=== PATIENT | male | born 1945 | race Caucasian/White ===

== ENCOUNTER 2017-03-19 14:08 | Emergency (ER) | payer MEDICARE ==
[~2017-03-19] VITALS: Ht 172.7 cm; Wt 78.0 kg
[~2017-03-19 14:08] MED LIST: CIPR500T4 PO; METR-1 PO; TEMA15 PO
[2017-03-19 14:10] VITALS: BP 142/75; PULSE 90; RESP 24; TEMP 98; O2SAT 99
[2017-03-19] MEDS ORDERED: TEMA30CA PO (15:09)
[2017-03-19] MEDS ORDERED: MORPHINE SULFATE 4 MG/ML INJ IM ONE (15:15)
[2017-03-19] MEDS ORDERED: ONDANSETRON HCL 4 MG/2 ML VIAL IM ONE (15:15)
[2017-03-19] MEDS ORDERED: KETOROLAC TROMETHAMINE 60 MG/2 ML (IM) VIAL IM ONE (15:15)
--- NOTE | 2017-03-19 15:27 | PD ---
HPI Chief Complaint: Back/ Neck Pain or Injury Time Seen by Provider: 14:54 Travel History International Travel<30 days: No Contact w/Intl Traveler<30days: No Traveled to known affect area: No History of Present Illness HPI This patient complains of back pain. He has bilateral low back pain. Severity is severe at this time. Duration one day. The patient was twisting his torso to grab something when the pain started. There was no direct trauma to it. No sciatic radiation. No urinary complaints. Symptoms exacerbated by movement. Symptoms alleviated by rest. No prior back surgery. Denies paresthesia or muscle weakness or sensory loss of the legs PFSH Past Medical History Asthma: No Blood Disorders: No Anxiety: No Depression: No Heart Rhythm Problems: No Cancer: Yes (SKIN ) Cardiovascular Problems: No High Cholesterol: No Chemotherapy: No Chest Pain: No Congestive Heart Failure: No COPD: No Diabetes: No Diminished Hearing: No Endocrine: No Gastrointestinal Disorders: Yes (GASTRITIS ) Genitourinary: No Hiatal Hernia: Yes Immune Disorder: No Kidney Stones: Yes Musculoskeletal: No Neurologic: No Psychiatric: No Reproductive: No Respiratory: No Radiation Therapy: No Sleep Apnea: No Thyroid Disease: No Past Surgical History Other Surgery: Yes (HEMMORHOID, basal cell carcinoma) Social History Alcohol Use: No Tobacco Use: No (QUIT 40 YRS AGO) Substance Use: No Allergies-Medications (Allergen,Severity, Reaction): Coded Allergies: penicillin G (Unverified Allergy, Severe, rash, 03/19/17) Reported Meds & Prescriptions Reported Meds & Active Scripts Active Tramadol (Tramadol HCl) 50 Mg Tab 50 Mg PO Q6H PRN Orphenadrine CR (Orphenadrine Citrate) 100 Mg Tab 100 Mg PO Q12HR Reported Temazepam 30 Mg Cap 30 Mg PO HS PRN Review of Systems General / Constitutional: No: Fever Eyes: No: Visual changes HENT: No: Headaches Cardiovascular: No: Chest Pain or Discomfort Respiratory: No: Shortness of Breath Gastrointestinal: No: Abdominal Pain Genitourinary: No: Dysuria Musculoskeletal: Positive: Pain Skin: No Rash Neurologic: No: Weakness Psychiatric: No: Depression Endocrine: No: Polydipsia Hematologic/Lymphatic: No: Easy Bruising Physical Exam Narrative GENERAL: Well-nourished, well-developed patient with back pain . SKIN: Focused skin assessment reveals no rash and nodules. Skin is Warm and dry. HEAD: Atraumatic. Normocephalic. EYES: Pupils equal and round. No scleral icterus. No injection or drainage. ENT: No nasal bleeding or discharge. Mucous membranes pink and moist. NECK: Trachea midline. No JVD. CARDIOVASCULAR: Regular rate and rhythm. No murmur appreciated. RESPIRATORY: No accessory muscle use. Clear to auscultation. Breath sounds equal bilaterally. GASTROINTESTINAL: Abdomen soft, non-tender, nondistended. Hepatic and splenic margins not palpable. MUSCULOSKELETAL: No obvious deformities. No clubbing. No cyanosis. No edema. Has bilateral low back tenderness diffusely. NEUROLOGICAL: Awake and alert. No obvious cranial nerve deficits. Motor grossly within normal limits. Normal speech. PSYCHIATRIC: Appropriate mood and affect; insight and judgment normal. Data Data Last Documented VS Vital Signs Date Time Temp Pulse Resp B/P (MAP) Pulse Ox O2 Delivery O2 Flow Rate FiO2 03/19/17 14:10 98.0 90 24 142/75 (97) 99 Orders Orders Ondansetron Inj (Zofran Inj) (03/19/17 15:15) Morphine Inj (Morphine Inj) (03/19/17 15:15) Ketorolac Inj (Toradol Inj) (03/19/17 15:15) Ct Lumb Spine W/O Contrast (03/19/17 ) [facility] Medical Decision Making Medical Screen Exam Complete: Yes Emergency Medical Condition: Yes Medical Record Reviewed: Yes Differential Diagnosis Lumbar strain, sciatica, disc herniation, spinal stenosis Narrative Course I have reviewed the patient's electronic medical record. I don't see any objective neurologic deficit. Patient is in a lot of pain. I gave him injection of morphine and Zofran and Toradol for symptom relief CT of lumbar spine shows minor arthritic change but no dangerous findings On recheck the patient feels much improved Presentation is consistent with severe lumbar muscular strain Tramadol and Norflex prescribed Warned about sedation and constipation Advised to call his doctor Tuesday morning for follow-up Diagnosis Primary Impression: Low back pain at multiple sites Additional Instructions: The patient was advised to follow up with their physician and return if they worsen. The patient was warned about potential sedation for the medications they will receive on prescription. Med/Other Pt SpecificInfo: Prescription(s) given Scripts Tramadol (Tramadol) 50 Mg Tab 50 MG PO Q6H Y for PAIN, #20 TAB 0 Refills Prov: Tyler Licona MD 03/19/17 Orphenadrine ER 12 HR (Orphenadrine CR) 100 Mg Tab 100 MG PO Q12HR for Muscle Spasm, #14 TAB 0 Refills Prov: Tyler Licona MD 03/19/17 Disposition: 01 DISCHARGE HOME Condition: Stable Tyler Licona MD Mar 19, 2017 15:27
--- NOTE | 2017-03-19 16:44 | RADRPT ---
EXAM DATE/TIME: 03/19/2017 16:04 [facility] COMPARISON: No previous studies available for comparison. INDICATIONS : Lower back pain. RADIATION DOSE: 35.86 CTDIvol (mGy) MEDICAL HISTORY : Hernia, hiatal. Renal calculi. Gastritis. SURGICAL HISTORY : None. ENCOUNTER: Initial ACUITY: 1 day PAIN SCALE: 8/10 LOCATION: Bilateral lower back. TECHNIQUE: Volumetric scanning of the lumbar spine was performed. Multiplanar reconstructions in the sagittal, coronal and oblique axial planes were performed. Using automated exposure control and adjustment of the mA and/or kV according to patient size, radiation dose was kept as low as reasonably achievable t o obtain optimal diagnostic quality images. DICOM format image data is available electronically for review and comparison. FINDINGS: VERTEBRAE: Normal vertebral body height. ALIGNMENT: No evidence of subluxation. T12-L1: The thecal sac has a normal diameter. No evidence of disc bulge or protrusion. The neural foramina are patent bilaterally. L1-L2: The thecal sac has a normal diameter. No evidence of disc bulge or protrusion. The neural foramina are patent bilaterally. L2-L3: The thecal sac has a normal diameter. No evidence of disc bulge or protrusion. The neural foramina are patent bilaterally. L3-L4: The thecal sac has a normal diameter. No evidence of disc bulge or protrusion. The neural foramina are patent bilaterally. Mild bilateral facet arthritis. L4-L5: The thecal sac has a normal diameter. No evidence of disc bulge or protrusion. The neural foramina are patent bilaterally. Mild bilateral facet arthritis. L5-S1: The thecal sac has a normal diameter. No evidence of disc bulge or protrusion. The neural foramina are patent bilaterally. Bilateral facet arthritis. CONCLUSION: Mild bilateral facet arthritis. Otherwise, unremarkable examination for a patient of this age. Kike Angeles MD on March 19, 2017 at 16:39 Board Certified Radiologist. This report was verified electronically.
[2017-03-19] MEDS ORDERED: ORPH100T2 PO (17:00)
[2017-03-19] MEDS ORDERED: TRAM50TA PO (17:00)
== END 2017-03-19 17:32 | disposition home or self-care (01) ==
LOC: NEPC 14:08
DX: M54.5 Low back pain (principal)
CPT/HCPCS: 72131; 96372; 99284; J1885; J2270; J2405